=== PATIENT | female | born 1995 | race Caucasian/White ===

== ENCOUNTER → 2021-02-07 15:10 | Outpatient (CLI) | payer OTHER, SELFPAY ==
[2021-02-07 16:22] LABS: COVID19 -Nasal RAPID Negative (Negative)
== END ==
PROVIDERS: Visit Provider Student in an Organized Health Care Education/Training Program
DX: J02.9 Acute pharyngitis, unspecified (principal); Z20.822 Contact with and (suspected) exposure to COVID-19
CPT/HCPCS: 87070; 87635